=== PATIENT | female | born 1970 | race Caucasian/White ===

== ENCOUNTER 2017-11-21 11:30 | Outpatient (CLI) | payer OTHER | END 2017-11-21 23:59 | disposition critical access hospital (66) | LOC: EMS 11:30 | PROVIDERS: ATTEND Surgery | DX: R41.82 Altered mental status, unspecified (principal) | CPT/HCPCS: A0425; A0427 ==

== ENCOUNTER 2017-11-21 11:50 | Emergency (ER) | payer OTHER ==
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
--- NOTE | 2017-11-21 13:11 | XRAY Preliminary Report ---
Exam: XR CHEST 2 VIEW X-RAY IMPRESSION: Left lower lobe opacity, most likely pneumonia in the setting of cough. Follow-up chest x -ray would be useful to ensure resolution and exclude mass. [facility] SITE ID: [id number]
--- NOTE | 2017-11-21 13:11 | XRAY Report ---
EXAM: CHEST RADIOGRAPHY EXAM DATE: 11/21/2017 12:58 PM. CLINICAL HISTORY: Cough syncope. COMPARISON: None. TECHNIQUE: 2 views. FINDINGS: Lungs/Pleura: There is a round opacity in the superior segment of the left lower lobe which measures 5 cm in diameter. The lung volumes are normal. There is no pleural effusion or pneumothorax. Mediastinum: Heart and mediastinal contours are unremarkable. Other: None. IMPRESSION: Left lower lobe opacity, most likely pneumonia in the setting of cough. Follow-up chest x -ray would be useful to ensure resolution and exclude mass. [facility] Referring Provider Line: [phone] SITE ID: [id number]
[2017-11-21 13:41] LABS: BASOPHILS % (AUTO) 0.2 %; EOSINOPHILS % (AUTO) 0.1 %; LYMPHOCYTES # (AUTO) 0.7 10^3/uL (1.5-3.5); LYMPHOCYTES % (AUTO) 5.8 %; MEAN CORPUSCULAR HEMOGLOBIN 28.6 pg (27.0-31.0); MEAN CORPUSCULAR HGB CONC 33.1 g/dL (32.0-36.0); MEAN CORPUSCULAR VOLUME 86.6 fL (81.0-99.0); MEAN PLATELET VOLUME 10.8 fL (7.9-10.8); MONOCYTES % (AUTO) 9.1 %; NEUTROPHILS # (AUTO) 9.6 10^3/uL (1.5-6.6); NEUTROPHILS % (AUTO) 84.8 %; PLT - PLATELET COUNT 96 10^3/uL (130-450); RED BLOOD COUNT 4.56 10^6/uL (4.20-5.40); WHITE BLOOD COUNT 11.4 x10^3/uL (4.8-10.8)
[2017-11-21] MEDS ORDERED: cefTRIAXone 1 GM in SODIUM CHLORIDE 0.9% MINIBAG 100 ML IV STA (13:47)
[2017-11-21 13:55] LABS: ALBUMIN 3.6 g/dL (3.2-5.5); ALBUMIN/GLOBULIN RATIO 0.9 (1.0-2.2); BILIRUBIN,TOTAL 0.4 mg/dL (0.2-1.0); CALCIUM 8.3 mg/dL (8.5-10.3); CREATININE 0.8 mg/dL (0.4-1.0); TOTAL PROTEIN 7.5 g/dL (6.7-8.2)
[2017-11-21 14:20] LABS: GLUCOSE, URINE (UA) NEGATIVE (NEGATIVE); KETONES,URINE (UA) >=80 mg/dL (NEGATIVE); LEUKOCYTE ESTERASE, URINE NEGATIVE (NEGATIVE); NITRITE,URINE NEGATIVE (NEGATIVE); OCCULT BLOOD,URINE LARGE (NEGATIVE); PH,URINE 6.5 PH (5.0-7.5); PROTEIN,URINE 100 mg/dL (NEGATIVE); UROBILINOGEN,URINE 1 (NORMAL) E.U./dL (NORMAL)
[2017-11-21 14:22] LABS: BILIRUBIN,URINE NEGATIVE (NEGATIVE); CLARITY,URINE CLOUDY (CLEAR); ICTOTEST,URINE NEGATIVE
[2017-11-21 14:29] LABS: BACTERIA,URINE Few /HPF (None Seen); RBC,URINE TNTC /HPF (0-5); SQUAMOUS EPITHELIAL CELL,UR MOD Squamous (<= Few)
[2017-11-21 15:01] VITALS: BP 124/74
== END 2017-11-21 15:00 | disposition home or self-care (01) ==
LOC: ED 11:50
DX: J18.1 Lobar pneumonia, unspecified organism (principal)
CPT/HCPCS: 36415; 71046; 80053; 81001; 81003; 83605; 83690; 84484; 85025; 87040; 87086; 87275; 87276; 93005; 99283; 99284